=== PATIENT | female | born 1935 | race Caucasian/White ===

== ENCOUNTER 2017-10-23 14:13 | Outpatient (CLI) | payer MEDICARE, BC | END 2017-10-23 14:14 | disposition home or self-care (01) | LOC: BICMAMMO 14:13 | PROVIDERS: ATTEND Internal Medicine | DX: Z12.31 Encounter for screening mammogram for malignant neoplasm of breast (principal); Z85.3 Personal history of malignant neoplasm of breast | CPT/HCPCS: 77063; 77067 ==

== ENCOUNTER 2018-04-30 09:26 | Outpatient (CLI) | payer MEDICARE, BC ==
--- NOTE | 2018-04-30 18:32 | NM ---
NUCLEAR MEDICINE Rogelio BRAIN SCAN: 04/30/18 HISTORY: 83-year-old female with G20, Parkinson's disease. TECHNIQUE: 130 mg of potassium iodide administered p.o. one hour prior to injection of Ioflupane. 4.5 millicuries of I-123 of Ioflupane injected IV. Three hours later, axial SPECT images obtained. FINDINGS: There is significantly decreased uptake in the bilateral putamina. There is uptake in the bilateral c audate heads. IMPRESSION: Abnormal scan, positive for Parkinsonian syndrome. POS: DANGELO
== END 2018-04-30 09:27 | disposition home or self-care (01) ==
LOC: NM 09:26
PROVIDERS: ATTEND Psychiatry & Neurology Neurology
DX: G20 Parkinson's disease (principal); R94.02 Abnormal brain scan
CPT/HCPCS: 78607; A9584

== ENCOUNTER 2018-06-19 10:27 | Outpatient (CLI) | payer MEDICARE, BC ==
--- NOTE | 2018-06-19 13:32 | ULT ---
LEFT BREAST DIAGNOSTIC ULTRASOUND: INDICATION: A red skin lesion overlying a previous left breast scar in the 1 o'clock region. The patient has a h istory of left breast malignancy in the 3 o'clock position. The patient reportedly underwent excisio nal biopsy at the left breast 1 o'clock region proximally in 2010 and 2011 that was reportedly benign . FINDINGS: There is an oval shadowing heterogeneous, mixed echogenicity, lesion seen within the region of the le ft breast skin lesion. This is seen in the left breast 1 o'clock position, anterior depth (1 cm from the nipple) and corresponds to the patient's surgical scar. This corresponds to a region of fat nec rosis seen on the left breast diagnostic mammogram. IMPRESSION: BIRADS category 2 - benign. Area of fat necrosis underlying the skin lesion of the left breast that is at a prior excisional biopsy site of the left breast. I physically examined this patient and did see a raised red skin lesion along the surgical incision s ite of the left breast 1 o'clock position. The findings mammographic and sonographic are most suspic ious for postoperative scar and subcutaneous fat necrosis changes. Negative imaging should never det er biopsy if findings on clinical exam remain suspicious. The patient is to have followup with Dr. Almeida of the General Surgery department on Friday, June 22, 2018. Recommended strongly to the patient that the patient needs to followup with Dr. Almeida a t this clinical appointment. Also indicated that in light of the skin lesion, which may be infectiou s or inflammatory in etiology, Dr. Almeida may need her to undergo biopsy of this region. This would be up to Dr. Almeida in his clinical judgement. The patient verbalized understanding before leaving the breast center. CODE CR POS: OFF
== END 2018-06-19 10:28 | disposition home or self-care (01) ==
LOC: BICULT 10:27
PROVIDERS: ATTEND Internal Medicine Hematology & Oncology
DX: C50.412 Malignant neoplasm of upper-outer quadrant of left female breast (principal); N64.1 Fat necrosis of breast
CPT/HCPCS: 76642; 77065; G0279

== ENCOUNTER 2019-03-16 15:18 | Emergency (ER) | payer MEDICARE, BC ==
--- NOTE | 2019-03-16 15:44 | CT ---
EXAM: CT brain without contrast HISTORY: Fall with right frontal pain COMPARISON: None TECHNIQUE: Multiple contiguous axial images were obtained and a CT of the brain without contrast. FINDINGS: The brain is normal in morphology and attenuation without focal lesions or confluent areas of infarction. There is no evidence of hydrocephalus, intracranial hemorrhage, or extra-axial fluid collection. The calvarium and overlying soft tissues are unremarkable. The visualized paranasal sinuses and masto id air cells are well aerated. IMPRESSION: No evidence of acute intracranial abnormality
--- NOTE | 2019-03-16 15:49 | RAD ---
EXAM: 4 views of the left knee HISTORY: Knee pain after fall COMPARISON: None FINDINGS: No knee effusion is seen. There is no evidence of acute fracture or dislocation. The patien t has a left knee prosthesis without perihardware lucency. IMPRESSION: No evidence of acute osseous abnormality.
== END 2019-03-16 15:53 | disposition home or self-care (01) ==
LOC: SCSER 15:18
DX: S00.83XA Contusion of other part of head, initial encounter (principal); S80.02XA Contusion of left knee, initial encounter; I10 Essential (primary) hypertension; G20 Parkinson's disease; W22.8XXA Striking against or struck by other objects, initial encounter
CPT/HCPCS: 70450

== ENCOUNTER 2019-06-29 10:51 | Outpatient (CLI) | payer MEDICARE, BC ==
--- NOTE | 2019-06-30 10:13 | MMO ---
Bilateral MAMMO Bilat Screen [facility]. CLINICAL HISTORY: Patient is 84 years old and is seen for screening. The patient has no family history of breast cancer. 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 The patient has a history of left Ultrasound Guided Core Biopsy in 2019 - benign and left Lumpectomy in May, - malignant. VIEWS: The views performed were: bilateral craniocaudal with tomosynthesis and bilateral mediolateral oblique with tomosynthesis. FILMS COMPARED: The present examination has been compared to prior imaging studies performed at [facility] on 10/09/2015, 10/10/2016, 10/23/2017 and 06/19/2018. This study has been interpreted with the assistance of computer-aided detection. MAMMOGRAM FINDINGS: The breasts are heterogeneously dense, which could obscure a lesion on mammography. Finding 1: There is a stable post-surgical scar seen in the left breast. Finding 2: There are stable benign appearing calcifications seen in both breasts. There are no suspicious masses, suspicious calcifications, or new areas of architectural distortion. IMPRESSION: THERE IS NO MAMMOGRAPHIC EVIDENCE OF MALIGNANCY. A ROUTINE FOLLOW-UP MAMMOGRAM IN 1 YEAR IS RECOMMENDED. THE RESULTS OF THIS EXAM WERE SENT TO THE PATIENT. ACR BI-RADS Category 2 - Benign finding MAMMOGRAPHY NOTE: 1. A negative mammogram report should not delay a biopsy if a dominant of clinically suspicious mass is present. 2. Approximately 10% to 15% of breast cancers are not detected by mammography. 3. Adenosis and dense breasts may obscure an underlying neoplasm. Reported by: ROHITH HANCOCK MD Electonically Signed: [id number]
== END 2019-06-29 10:52 | disposition home or self-care (01) ==
LOC: BICMAMMO 10:51
PROVIDERS: ATTEND Internal Medicine
DX: Z12.31 Encounter for screening mammogram for malignant neoplasm of breast (principal); Z85.3 Personal history of malignant neoplasm of breast; Z98.890 Other specified postprocedural states; Z91.89 Other specified personal risk factors, not elsewhere classified
CPT/HCPCS: 77063; 77067

== ENCOUNTER 2023-03-10 14:37 | Outpatient (CLI) | payer MEDICARE, BC | END 2023-03-10 14:38 | disposition home or self-care (01) | LOC: BICMAMMO 14:37 | PROVIDERS: ATTEND Internal Medicine | DX: Z12.31 Encounter for screening mammogram for malignant neoplasm of breast (principal); Z90.12 Acquired absence of left breast and nipple; D05.12 Intraductal carcinoma in situ of left breast | CPT/HCPCS: 77063; 77067 ==

== ENCOUNTER 2024-03-11 15:28 | Observation (INO) | payer BC, MEDICARE ==
[~2024-03-11 15:28] MED LIST: Iopamidol-370 76% 500 ML MDV (1 ML CHARGE) ONE
[2024-03-11 16:30] LABS: #Basophils 0.06 10x3/uL (0.0-0.2); %Eosinophils 2.9 % (0.0-10.0); %Lymphocytes 32.8 % (21.0-51.0); %Monocytes 11.4 % (0.0-10.0); %Neutrophils 51.7 % (42.0-75.0); Hematocrit 45.2 % (36.0-47.0); Mean Corpuscular Hemoglobin 27.1 pg (27.0-31.0); Mean Corpuscular Volume 87.6 fL (78.0-98.0); Mean Platelet Volume 10.4 fL (7.4-10.4); Platelet Count 224 10x3/uL (130-400); RBC Distribution Width 14.9 % (11.5-14.5); Red Blood Cell (RBC) Count 5.16 mill/uL (4.20-5.40)
[2024-03-11 16:47] LABS: ALT (SGPT) Less than 5 U/L (8-55); AST (SGOT) 14 U/L (5-34); Albumin 3.6 g/dL (3.4-4.8); Alkaline Phosphatase 68 U/L (40-110); Anion Gap 11 mmol/L (10-20); BUN (Urea Nitrogen) 20 mg/dL (9.8-20.1); Bilirubin, Total 0.4 mg/dL (0.2-1.2); Calc. Creatinine Clearance 0 mL/min (70-130); Carbon Dioxide 26 mmol/L (23-31); Chloride 106 mmol/L (98-107); Estimated GFR 67; Globulin 3.1 g/dL (2.4-3.5); Glucose 80 mg/dL (83-110); Magnesium 2.3 mg/dL (1.6-2.6); Potassium 4.1 mmol/L (3.5-5.1); Protein, Total 6.7 g/dL (5.8-8.1); Sodium 139 mmol/L (136-145)
[2024-03-11 16:53] LABS: Bacteria/HPF None Seen HPF (None Seen); Bilirubin Negative (Negative); Blood, Urine Negative (Negative); CAUTI Indications for Culture Dysuria,urgency,freq; Clarity Turbid (Clear); Glucose, Urine (Dipstick) Normal (Negative); Ketone, Urine Negative (Negative); Leukocyte 75 Leu/uL (Negative); Nitrite Negative (Negative); Protein, Urine (Dipstick) Negative (Neg-Trace); RBC/HPF 0-3 HPF (0-3); Specific Gravity, Urine 1.013 (1.002-1.036); Squamous Epithelial 0-3 HPF (0-3); pH, Urine 6.5 (5.0-9.0)
[2024-03-11 16:57] LABS: Urine Culture Reflex No No
[2024-03-11 17:05] LABS: Troponin I Less than 0.010 ng/mL (< 0.028)
[2024-03-11] MEDS ORDERED: hydrALAZINE 20 MG/ML VIAL SLOW IVP PRN (19:10)
[2024-03-11 20:30] VITALS: BMI 28.0
[2024-03-11] MEDS: Atorvastatin Calcium 40 MG TAB PO SCH (21:00)
[2024-03-11] MEDS: Heparin 5,000 UNITS/ML VIAL SC SCH (21:00)
[2024-03-11] MEDS: Aspirin 81 mg Enteric Coated Tablet PO SCH (21:00)
[2024-03-11 21:01] LABS: Hemoglobin A1c 5.5 % (4.0-6.0)
[2024-03-11] MEDS ORDERED: ALPRAZolam 0.25 MG TAB PO PRN ×2 (21:27→21:28)
[2024-03-11] MEDS ORDERED: ALPRAZolam 1 MG TAB PO PRN (21:32)
[2024-03-11] MEDS: Carbidopa/Levodopa CR 50-200 mg Tablet PO SCH (22:19)
[2024-03-11] MEDS: ALPRAZolam 0.5 MG TAB PO PRN (22:20)
[2024-03-12 03:31] LABS: #Basophils 0.06 10x3/uL (0.0-0.2); %Eosinophils 3.6 % (0.0-10.0); %Lymphocytes 33.5 % (21.0-51.0); %Monocytes 10.9 % (0.0-10.0); %Neutrophils 50.7 % (42.0-75.0); Hematocrit 39.5 % (36.0-47.0); Hemoglobin 12.2 g/dL (12.0-16.0); Mean Corpuscular HGB CONC 30.9 g/dL (32.0-36.0); Mean Corpuscular Hemoglobin 27.2 pg (27.0-31.0); Mean Corpuscular Volume 88.2 fL (78.0-98.0); Mean Platelet Volume 10.9 fL (7.4-10.4); Platelet Count 177 10x3/uL (130-400); RBC Distribution Width 15.1 % (11.5-14.5); Red Blood Cell (RBC) Count 4.48 mill/uL (4.20-5.40)
[2024-03-12 03:57] LABS: Anion Gap 11 mmol/L (10-20); BUN (Urea Nitrogen) 20 mg/dL (9.8-20.1); Calc. Creatinine Clearance 57 mL/min (70-130); Calcium 8.3 mg/dL (7.8-10.44); Carbon Dioxide 25 mmol/L (23-31); Cardiac Risk 2.9 (Less than 4.5); Chloride 108 mmol/L (98-107); Cholesterol 114 mg/dl (< 200 Desired); Estimated GFR 81; Glucose 99 mg/dL (83-110); HDL Cholesterol 39 mg/dL (>60 Neg Risk); LDL Cholesterol, Calculated 61 mg/dL; Potassium 3.7 mmol/L (3.5-5.1); Sodium 140 mmol/L (136-145); Triglycerides 72 mg/dL (Less than 150)
[2024-03-12] MEDS ORDERED: Levothyroxine Sodium 75 MCG TAB PO SCH (09:00)
[2024-03-12] MEDS ORDERED: Non-Formulary Item 1 EACH (Carbidopa/Levodopa [Rytary Er] 48.75 MG/195 MG Capsule.Er) PO SCH (09:00)
[2024-03-12] MEDS ORDERED: SEMAGLUTIDE 0.25 MG/0.368 ML SC SCH (09:00)
[2024-03-12] MEDS ORDERED: Donepezil HCl 10 MG TAB PO SCH (09:00)
[2024-03-12] MEDS ORDERED: Non-Formulary Item 1 EACH (Semaglutide [Ozempic] 0.25 MG/0.368 ML Pen.Injctr) SQ SCH (09:00)
[2024-03-12] MEDS: Memantine 10 MG TAB PO SCH (09:19)
[2024-03-12] MEDS: Donepezil HCl 10 MG TAB PO SCH (09:19)
[2024-03-12] MEDS: Aspirin 81 mg Enteric Coated Tablet PO SCH (09:42)
[2024-03-12] MEDS ORDERED: Acetaminophen 325 MG TAB PO PRN (11:49)
[2024-03-12] MEDS: Carbidopa/Levodopa [Rytary Er] 48.75 MG/195 MG Capsule.Er PO SCH (12:31)
[2024-03-12] MEDS ORDERED: Carbidopa/Levodopa CR 50-200 mg Tablet PO SCH (21:00)
[2024-03-13] MEDS: Levothyroxine Sodium 75 MCG TAB PO SCH (06:26)
[2024-03-13 12:11] VITALS: BP 152/81; TEMP 98.2
== END 2024-03-13 13:27 | disposition home or self-care (01) ==
LOC: ERS 15:28 → 2SE 18:30
PROVIDERS: ADMIT Internal Medicine; ATTEND Internal Medicine
PROC: B24BZZZ Ultrasonography of Heart with Aorta (ICD-10-PCS; principal; 2024-03-11)
DX: R29.818 Other symptoms and signs involving the nervous system (principal); I10 Essential (primary) hypertension; E78.5 Hyperlipidemia, unspecified; E03.9 Hypothyroidism, unspecified; F41.9 Anxiety disorder, unspecified; G20.A1 Parkinson's disease without dyskinesia, without mention of fluctuations; M19.90 Unspecified osteoarthritis, unspecified site; N39.0 Urinary tract infection, site not specified; Z96.653 Presence of artificial knee joint, bilateral; Z87.59 Personal history of other complications of pregnancy, childbirth and the puerperium; Z85.3 Personal history of malignant neoplasm of breast; Z90.710 Acquired absence of both cervix and uterus; Z98.890 Other specified postprocedural states; Z79.890 Hormone replacement therapy; Z79.01 Long term (current) use of anticoagulants; Z79.82 Long term (current) use of aspirin; Z79.899 Other long term (current) drug therapy
CPT/HCPCS: 70496; 70498; 70551; 71045; 72141; 80048; 80061; 81001; 83036; 83735; 83880; 84484; 85025; 93005; 93306; 96372 ×3; 97116; 99285; G0378 ×4; J1644 ×3; Q9967; 36415; 80053; 84443

== ENCOUNTER 2024-07-08 13:04 | Outpatient (CLI) | payer MEDICARE | END 2024-07-08 13:05 | disposition home or self-care (01) | LOC: BICMAMMO 13:04 | PROVIDERS: ATTEND Internal Medicine | DX: Z12.31 Encounter for screening mammogram for malignant neoplasm of breast (principal); Z80.3 Family history of malignant neoplasm of breast; Z86.000 Personal history of in-situ neoplasm of breast; Z98.890 Other specified postprocedural states | CPT/HCPCS: 77063; 77067 ==

== ENCOUNTER 2025-03-27 00:06 | Inpatient (IN) | payer MEDICARE ==
[2025-03-27 00:36] VITALS: BMI 28.6
[2025-03-27] MEDS ORDERED: Acetaminophen 325 MG TAB PO PRN (01:07)
[2025-03-27] MEDS ORDERED: Ondansetron PF 4 MG/2 ML Vial IVP PRN (01:07)
[2025-03-27] MEDS ORDERED: Melatonin 3 MG TAB PO PRN (01:07)
[2025-03-27] MEDS ORDERED: ALPRAZolam 0.25 MG TAB PO PRN (01:14)
[2025-03-27 04:53] LABS: #Basophils 0.03 10x3/uL (0.0-0.2); #Eosinophils 0.18 10x3/uL (0.0-0.7); #Monocytes 0.66 10x3/uL (0.11-0.59); #Neutrophils 3.70 10x3/uL (1.40-6.50); %Basophils 0.5 % (0.0-1.0); %Eosinophils 3.0 % (0.0-10.0); %Lymphocytes 23.0 % (21.0-51.0); %Monocytes 11.1 % (0.0-10.0); %Neutrophils 62.2 % (42.0-75.0); Hematocrit 37.5 % (36.0-47.0); Hemoglobin 11.9 g/dL (12.0-16.0); Mean Corpuscular Hemoglobin 26.9 pg (27.0-31.0); Mean Corpuscular Volume 84.8 fL (78.0-98.0); Platelet Count 146 10x3/uL (130-400); Red Blood Cell (RBC) Count 4.42 mill/uL (4.20-5.40); White Blood Cell (WBC) Count 5.95 10x3/uL (4.8-10.8)
[2025-03-27 05:07] LABS: Anion Gap 10 mmol/L (10-20); BUN (Urea Nitrogen) 16 mg/dL (9.8-20.1); Calc. Creatinine Clearance 68 mL/min (70-130); Calcium 8.3 mg/dL (7.8-10.44); Carbon Dioxide 23 mmol/L (23-31); Chloride 110 mmol/L (98-107); Glucose 112 mg/dL (83-110); Potassium 3.4 mmol/L (3.5-5.1); Sodium 140 mmol/L (136-145)
[2025-03-27] MEDS ORDERED: FLU (Fluad Triv) 25-26 (65UP)PF 45 MCG/0.5 ML Syringe IM ONE (09:00)
[2025-03-27] MEDS: Ciprofloxacin 500 MG TAB PO SCH (10:29)
[2025-03-27] MEDS: Aspirin 81 mg Enteric Coated Tablet PO SCH (10:29)
[2025-03-27] MEDS: Cholecalciferol 1,000 UNITS (25 MCG) TAB PO SCH (10:29)
[2025-03-27] MEDS: Pantoprazole 40 MG DR.TAB PO SCH (10:30)
[2025-03-27] MEDS: Rosuvastatin 5 MG TAB PO SCH (20:13)
[2025-03-27] MEDS: Sertraline 100 MG TAB PO SCH (20:14)
[2025-03-27] MEDS: ALPRAZolam 0.25 MG TAB PO PRN (21:43)
[2025-03-28] MEDS ORDERED: Lidocaine 1% w/Epinephrine 1:100K 20 ML VIAL ONE (09:10)
[2025-03-28 12:30] VITALS: TEMP 97.3
[2025-03-28 14:49] VITALS: BP 101/57
== END 2025-03-28 15:12 | disposition home or self-care (01) | DRG 261 ==
LOC: 2NO 00:06 → OBSVTOIN 08:39
PROVIDERS: ADMIT Student in an Organized Health Care Education/Training Program; ATTEND Family Medicine
PROC: 0JH632Z Insertion of Monitoring Device into Chest Subcutaneous Tissue and Fascia, Percutaneous Approach (ICD-10-PCS; principal; 2025-03-27)
DX: I45.10 Unspecified right bundle-branch block (principal); G45.9 Transient cerebral ischemic attack, unspecified; N39.0 Urinary tract infection, site not specified; R55 Syncope and collapse; I49.5 Sick sinus syndrome; E87.6 Hypokalemia; G20.A1 Parkinson's disease without dyskinesia, without mention of fluctuations; W19.XXXA Unspecified fall, initial encounter; D64.9 Anemia, unspecified; Z85.3 Personal history of malignant neoplasm of breast; Z98.890 Other specified postprocedural states; Z79.899 Other long term (current) drug therapy; Z79.82 Long term (current) use of aspirin; E78.5 Hyperlipidemia, unspecified; I10 Essential (primary) hypertension; Z79.890 Hormone replacement therapy
CPT/HCPCS: 33285; 36415; 70551; 80048; 85025; 93306; C1764; G0378